=== PATIENT | female | born 1985 | race Caucasian/White ===

== ENCOUNTER 2018-01-01 11:19 | Emergency (ER) | payer OTHER, MEDICAID | END 2018-01-01 13:56 | disposition home or self-care (01) | LOC: FTE 11:19 | DX: O99.89 Other specified diseases and conditions complicating pregnancy, childbirth and the puerperium (principal); R19.7 Diarrhea, unspecified; Z3A.24 24 weeks gestation of pregnancy | CPT/HCPCS: 99283; Z7502 ==